=== PATIENT | female | born 1940 | race Caucasian/White ===

== ENCOUNTER 2017-03-14 23:09 | Observation (INO) | payer MEDICARE, MEDICAID ==
[2017-03-14] MEDS ORDERED: FENTANYL 100 MCG/2 ML VIAL ONE (23:36)
[2017-03-15] MEDS ORDERED: KETAMINE HCL 500 MG/10 ML VIAL ONE (00:31)
[2017-03-15] MEDS ORDERED: FENTANYL 100 MCG/2 ML VIAL ONE (00:31)
[2017-03-15] MEDS ORDERED: ONDANSETRON HCL 4 MG/2 ML VIAL ONE (00:31)
[2017-03-15] MEDS ORDERED: LABETALOL HCL 100 MG/20 ML VIAL IV ONE (01:24)
[2017-03-15] MEDS ORDERED: ZOLPIDEM TARTRATE 5 MG TABLET PO PRN (01:32)
[2017-03-15] MEDS ORDERED: HOME MEDICATION LIST NEEDED 1 EA EACH MISC ONE (01:32)
[2017-03-15 01:56] LABS: A/G RATIO 1.1; ALBUMIN 4.2 g/dL (3.5-5.0); ALKALINE PHOSPHATASE 87 U/L (38-126); ALT 52 U/L (9-52); AST 36 U/L (14-36); BILIRUBIN, TOTAL 0.7 mg/dL (0.2-1.3); BLOOD UREA NITROGEN 15 mg/dL (7-17); CALCIUM 9.1 mg/dL (8.4-10.2); CHLORIDE 100 mmol/L (98-107); EST GLOMERULAR FILTRATION RATE > 60 mL/min; POTASSIUM 4.3 mmol/L (3.5-5.1); SODIUM 138 mmol/L (137-145); TOTAL PROTEIN 7.9 g/dL (6.3-8.2)
[2017-03-15] MEDS ORDERED: NORMAL SALINE 1,000 ML IV SCH (02:00)
--- NOTE | 2017-03-15 02:33 | ER NURSING DOCUMENTATION ---
Nurse's Notes [place] Name:Shania Frias Age:76 yrs Sex:Female :1940 Arrival Date:03/14/2017 Time:23:09 BedTrauma-B Private MD: Diagnosis:Ankle Fracture Presentation: 03/14 23:17 Presenting complaint: EMS states: fell out of chair injuring right ankle. Care prior to arrival: Medication(s) given: Fentanyl 100mcg Intranasal. 23:17 Acuity: ANGELICA 2 23:17 Method Of Arrival: EMS: 410 03/15 01:04 Mechanism of Injury: Fall fell from chair, sliding to floor. Trauma event details: Injury occurred in the [facility] Injury occurred at home. Injury occurred March 15, 2017 Injury occurred at 22:10. 01:44 Transition of care: Home. Historical: - Allergies: influenza vaccine; pneumonia vaccine; Levodopa; Unable to obtain; - Home Meds: 1. Keppra Oral 2. Levodopa Oral 3. atorvastatin oral 4. Januvia oral 5. Lantus Sub-Q 6. Aspirin Oral 7. Coumadin Oral 8. Lisinopril Oral 9. Zoloft Oral 10. medicinal marijuana 11. Zoloft 100 mg oral tab once daily 12. Lantus Sub-Q Unknown 13. Keppra 250 mg oral tab Unknown 14. enalapril maleate 5 mg oral tab once daily 15. Coumadin 2 mg oral tab once daily 16. Januvia 100 mg oral tab once daily 17. atorvastatin 80 mg oral tab once daily 18. carbidopa-levodopa 25-100 mg oral tab 19. glipizide 10 mg oral tab once daily - PMHx: Diabetes - IDDM; CVA; PARKINSONS; hypercholesterolemia; myocardial infarction; ANXIETY; DEPRESSION; Hypertension; Seizures; Diabetes - IDDM; CVA; Hypertension; Seizures; DEPRESSION; - PSHx: Hysterectomy; Cholecysectomy; Appendectomy; - Tetanus: Other never received unknown. - Ebola Screening: : Patient negative for fever greater than or equal to 101.5 degrees Fahrenheit, and additional compatible Ebola Virus Disease symptoms. Patient denies exposure to infectious person. Patient denies travel to an Ebola-affected area in the 21 days before illness onset. No symptoms or risks identified at this time. . - Immunization history: Pneumococcal vaccine is not up to date, Patient has never been vaccinated, Flu Vaccine None. - Social history: Smoking status: Patient states was never smoker of tobacco. Patient uses Medical Marijuana Patient/guardian denies using alcohol. Screenin:29 Abuse screen: Denies threats or abuse. Denies injuries from another. Nutritional sj screening: On diabetic diet. Tuberculosis screening: Never had TB. Fall risk At risk due to injury, age, immobility, deformity. 01:44 Infectious Disease Risk None. sj Primary Survey: : Airway: Oxygen via nasal cannula at 2 liters per minute. Breathing/Chest: Respiratory sj pattern: regular, Respiratory effort: spontaneous, unlabored. Circulation: Cardiac rhythm: sinus rhythm Pulses: palpable right dorsalis pedis artery. Skin color: pink. Assessment: :08 General: Appears distressed, Behavior is cooperative, pleasant. Pain: Complains of pain sj in right ankle. Neuro: Level of Consciousness is awake, confused, obeys commands, Oriented to person, place, time, event, Denies paresthesias. Cardiovascular: Capillary refill < 3 seconds in left toes Rhythm is regular. Respiratory: Airway is patent Respiratory effort is even, unlabored, Respiratory pattern is regular, symmetrical. Musculoskeletal: Circulation, motion, and sensation intact Capillary refill < 3 seconds Range of motion limited in right ankle. Vital Signs: 03/14 23:11 BP 185 / 76 (auto/); Pulse 82; Resp 16; Temp 98.2(O); Pulse Ox 92% on 2 lpm NC; Weight sj 68.04 kg; Height 4 ft. 11 in. (149.86 cm); Pain 8/10; 03/15 00:31 BP 209 / 94 (auto/); sj 00:33 Pulse 70 MON; Resp 17; Pulse Ox 94% ; sj 00:43 Pulse 74 MON; Resp 19; Pulse Ox 96% ; sj 00:45 BP 223 / 100 (auto/); sj 00:48 Pulse 80 MON; Resp 19; Pulse Ox 100% ; sj 00:50 BP 230 / 112 (auto/); sj 00:53 Pulse 91 MON; Resp 15; Pulse Ox 100% ; sj 00:55 BP 248 / 123 (auto/); sj 00:58 Pulse 97 MON; Resp 14; Pulse Ox 100% ; sj 01:00 BP 234 / 120 (auto/); sj 01:03 Pulse 87 MON; Resp 14; Pulse Ox 96% ; sj 01:05 BP 224 / 119 (auto/); sj 01:08 Pulse 90 MON; Resp 14; Pulse Ox 96% ; sj 01:11 BP 214 / 108 (auto/); sj 01:13 Pulse 78 MON; Resp 15; Pulse Ox 96% ; sj 01:16 BP 178 / 84 (auto/); sj 01:18 Pulse 67 MON; Resp 17; Pulse Ox 96% ; sj 01:21 BP 159 / 96 (auto/); sj 01:23 Pulse 69 MON; Resp 15; Pulse Ox 97% ; sj 03/14 23:11 Body Mass Index 30.30 (68.04 kg, 149.86 cm) Trauma Score (Adult): 03/14 23:11 Eye Response: spontaneous(1); Verbal Response: confused(1); Motor Response: obeys sj commands(2); Systolic BP: > 89 mm Hg(4); Respiratory Rate: 10 to 29 per min(4); [place] Score: 14; Trauma Score: 12 ED Course: 23:10 Patient arrived in ED. ma1 23:13 Eddie Briggs MD is Attending Physician. tl1 23:16 Port Xray Completed. pm1 23:17 Bertha Gilliam is Primary Nurse. 23:33 Triage completed. 03/15 01:29 Valuables Given to family. Patient has correct armband on for positive identification. Bed in low position. Call light in reach. Side rails up X2. Adult w/ patient. Oxygen Oxygen administration via nasal cannula @ 2L/min. Labs drawn. By Lab Staff Portable x-ray done. official greeter on. Pulse ox on. NIBP on. 01:30 Assist Provider Assist provider with reduction of right ankle. Inserted saline lock: 22 sj gauge in left hand Missed attempts: 20 gauge in left antecubital area, 22 gauge in right wrist. Posterior lower leg splint applied on right leg. Applied post reduction by a physician. 01:44 Valuables Given to family. sj 02:31 Eddie Briggs MD is Admitting Physician. mk4 Administered Medications: 00:40 Drug: Zofran 4 mg; Route: IVP; Infused Over: 2 mins; Site: left hand; 01:42 Follow up: Response: Nausea is decreased 00:45 Drug: Ketamine 0.25 mg/kg; Route: IVP; Site: left hand; sj 01:42 Follow up: Response: Patient is sedated sj 00:48 Drug: fentaNYL (PF) 50 mcg; Route: IVP; Site: left hand; sj 01:42 Follow up: Response: Pain is decreased sj 01:12 Drug: Labetalol 20 mg; Route: IVP; Infused Over: 2 mins; Site: left hand; sj 01:42 Follow up: Response: Blood pressure is lowered sj 01:42 Not Given (Physician Discretion): Dilaudid 1 mg IVP once sj Outcome: 01:39 Admitted to Med/surg accompanied by nurse, family with patient, via stretcher, with oxygen. 01:39 Condition: improved 01:53 Report given to Gil GARRIDO mk4 02:32 Decision to Admit by Provider. mk4 02:32 Patient left the ED. mk4 Signatures: Chelsey Beckman Philisha pm1 Rosalia Shah 4 Eddie Briggs MD MD 1 Bertha Gilliam Melissa il1
[2017-03-15 02:38] LABS: GLUCOSE 320 mg/dL (70-100)
[2017-03-15 03:24] LABS: RED BLOOD COUNT 4.62 X 10^6uL (4.20-6.10); WHITE BLOOD COUNT 18.5 X 10^3uL (3.9-10.7)
[2017-03-15 03:25] LABS: HEMATOCRIT 43.1 % (36.0-48.0); HEMOGLOBIN 14.5 g/dL (12.0-16.0); LYMPHOCYTES 55.4 % (20.0-40.0); MEAN CORPUS. HGB CONCENTRATION 33.8 g/dL (32.0-36.0); MEAN CORPUSCULAR HEMOGLOBIN 31.5 pg (29.0-35.0); MEAN PLATELET VOLUME 7.7 fL (7.4-10.4); NEUTROPHILS 36.3 % (54.0-75.0); RED CELL DISTRIBUTION WIDTH 12.8 % (11.5-14.5)
[2017-03-15 03:26] LABS: BASOPHILS 1.3 % (0.0-2.0); NEUTROPHILS# 6.7 X 10^3uL (2.6-6.7)
[2017-03-15 03:27] LABS: BASOPHIL# 0.2 X 10^3uL (0.0-0.1); EOSINOPHILS# 0.2 X 10^3uL (0.0-0.4); MONOCYTES# 1.1 X 10^3uL (0.2-1.0)
[2017-03-15 03:29] LABS: PLATELET COUNT 209 X 10^3uL (130-440)
[2017-03-15] MEDS ORDERED: MORPHINE SULFATE 4 MG/ML SYR IV PRN (04:03)
[2017-03-15] MEDS ORDERED: ATORVASTATIN CALCIUIM 40 MG TABLET PO SCH ×2 (04:22→21:00)
[2017-03-15] MEDS ORDERED: ENALAPRIL MALEATE 5 MG TABLET PO SCH ×2 (04:30→09:00)
[2017-03-15] MEDS ORDERED: LEVETIRACETAM 500 MG TABLET PO ONE (04:35)
[2017-03-15] MEDS ORDERED: ENALAPRIL MALEATE 5 MG TABLET PO ONE (04:45)
[2017-03-15] MEDS: ACETAMINOPHEN 325 MG TABLET PO PRN ×2 (06:41→11:26)
[2017-03-15] MEDS ORDERED: CARBIDOPA/LEVODOPA 25/100 MG 1 TAB TABLET PO SCH (09:00)
[2017-03-15] MEDS ORDERED: SITAGLIPTIN 100 MG TABLET PO SCH (09:00)
[2017-03-15] MEDS ORDERED: LEVETIRACETAM 500 MG TABLET PO SCH (09:00)
--- NOTE | 2017-03-15 10:56 | HISTORY AND PHYSICAL ---
PROVIDER: Date of Admission: 03/15/17 Admitting Provider: LACEY NICHOLS Attending Provider: LACEY NICHOLS Primary Care Provider: Dr. Mary Gaspar at [facility] Cardiology: [facility] HISTORY OF PRESENT ILLNESS: Mrs. Frias is a 76-year-old lady with past medical history significant for hypertension atrial fibrillation diabetes who had a stroke myocardial infarction and developed a seizure disorder and parkinsonism as a consequence of the stroke in 2004. She also had premorbid anxiety and depression that has increased since her stroke. She has additionally undergone a cholecystectomy appendectomy total abdominal hysterectomy. She was admitted last evening after sustaining a fall and bimalleolar fracture right ankle by Dr. Briggs at that time he attempted to transfer patient to [facility] where her rn cardiovascular icu as well her primary care physician have privileges as Dr. Guan was consulted from an orthopedic standpoint and felt that the fracture could be addressed in most institutions but because of her medical comorbidity she would best be served perioperatively and postoperatively being managed by physicians that new her and could address cardiac and respiratory complication. Unfortunately, she was not able to transfer secondary to chronic and ongoing difficulty with ambulation, EMS unable to provide transport to [facility] , [facility] not being able to send an ambulance unless critical care related and patients family unable to transfer her into their RV related to parkinsonism from her prior stroke as well concomitant pain with bimalleolar fracture. At baseline she lives with her son uses a 4 wheeled walker with hand brakes but needs help even to ambulate with this as she has gait instability she needs help with toileting and dressing and is only able to feed herself. Since her injury last evening she has not been able to transfer from bed to wheelchair and wheelchair back to bed easily and is a 3 person assist. They describe what happened last evening she was sitting in her recliner as she normally does watching TV and stood without assistance and slipped without a head injury but wedging her ankle between furniture and fracturing. She does not recall fever cough cold congestion dysuria or urinary frequency nausea abdominal pain diarrhea chest pain palpitations or shortness of breath prior to this episode. In the emergency room she was noted to be hypertensive that exacerbated after ketamine was used for reduction of her fracture and splinting. PAST MEDICAL HISTORY: Parkinsonism stroke 2004 myocardial infarction 2004 seizure disorder 2004 diabetes atrial fibrillation hypertension anxiety and depression PAST SURGICAL HISTORY: Colectomy appendectomy cholecystectomy SOCIAL HISTORY: Lives with her son needs assistance with activities of daily living with exception of feeding ( including assistance with toileting bathing and dressing) lifelong non-smoker no alcohol uses medicinal marijuana MEDICATIONS: Zoloft 100 mg p.o. daily Lantus subcutaneous dosing query dose daily Keppra 250 mg p.o. twice daily enalapril 5 mg p.o. daily Coumadin 2 mg p.o. daily Januvia 100 mg p.o. daily atorvastatin 80 mg p.o. daily medicinal marijuana query dose daily Sinemet 25/100 mg tablets 1 tablet p.o. 3 times daily glipizide 10 mg 1 tablet p.o. daily ALLERGIES: NKDA REVIEW OF SYSTEMS: per HPI VITAL SIGNS: 130/70 HR 70 RR16 T: 98.8 Pulse ox:95% 2lNC PHYSICAL EXAMINATION: Pleasant no apparent distress no jaundice anemia cyanosis clubbing or lymphadenopathy neck is supple no masses or bruits cardiac exam S1-S2 without murmur respiratory exam clear to auscultation to bases no adventitial sounds abdominal exam soft nontender no masses appreciated extremity exam cogwheel rigidity prominent right upper extremity no pronator drift mild dysmetria right upper extremity power and tone symmetric in upper extremities otherwise noted lower extremity brisk cap refill right lower extremity and able to wiggle toes without pain but ankle is splinted left leg normal power and tone dorsal pedal pulses palpable Assessment and Plan - Date of Encounter Date of Encounter: 03/15/17 (1) Bimalleolar fracture of right ankle Status: Acute Qualifiers: Encounter type: initial encounter Fracture type: closed Qualified Code(s) : S82.841A - Displaced bimalleolar fracture of right lower leg, initial encounter for closed fracture Assessment and plan: Splinted, elevated and ice applied. Pain control adequate. May need to readdress with Dr. Guan operative management at [facility], EKG and chest x-ray being requested as transportation may become an issue. Family is aware that patient's medical comorbidity does make her higher risk and lack of prior records and studies also affects risk stratification. Depending on EKG and chest x-ray results and if indeed elevated white count is related to urinary tract infection and adequately treated, patient should be able to undergo anesthesia for operative fixation of her bimalleolar fracture. Ideally this would occur at [facility] and I have completed travel insurance forms for patient's insurance to hopefully cover portion of her transfer cost and discussing with EMS at [facility] feasibility of freeing up an ambulance for transport and/or son if able to obtain a car that the patient can transfer into and out of with assistance, will then liaise with [facility] hospitalist group to arrange transfer and admission, preop optimization prior to surgery over the next several days. otal time 120 minutes with most in logisics of care/counselling/coordination of care Current Visit: Yes (2) Diabetes Status: Acute Qualifiers: Diabetes mellitus type: type 2 Assessment and plan: continue current meds, SSI and calculate need and add back in Lantus Current Visit: Yes (3) Hypertension Status: Acute Qualifiers: Hypertension type: essential hypertension Qualified Code(s): I10 - Essential (primary) hypertension Assessment and plan: ACEI Current Visit: Yes (4) Dyslipidemia Status: Acute Assessment and plan: ?Need statin, not appear to be taking post stroke Current Visit: Yes (5) Parkinsonism Status: Acute Qualifiers: 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 Qualified Code(s): 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 Current Visit: Yes (6) Leukocytosis Status: Acute Assessment and plan: likely UTI, culture pending and Abx started Current Visit: Yes (7) H/O: stroke with residual effects Status: Acute Current Visit: Yes (8) H/O myocardial ischemia Status: Acute Current Visit: Yes (9) Atrial fibrillation Status: Acute Qualifiers: Atrial fibrillation type: paroxysmal Qualified Code(s): I48.0 - Paroxysmal atrial fibrillation Assessment and plan: on warfarin for anticoagulation Current Visit: Yes (10) Anxiety Status: Acute Assessment and plan: lexapro Current Visit: Yes (11) Depression Status: Acute Current Visit: Yes - Time Spent With Patient Total time spent with greater than 50% in coordination of care (as documented) at patient's floor/unit and/or counseling patient: Greater than 35 minutes
[2017-03-15] MEDS ORDERED: CIPROFLOXACIN HCL 250 MG TABLET PO SCH (11:00)
[2017-03-15] MEDS ORDERED: DEXTROSE 50% WATER 25 GM/50 ML SYR IV PRN (11:17)
[2017-03-15] MEDS ORDERED: INSULIN LISPRO 100 UNIT/ML ML SUBCUT SCH (11:30)
--- NOTE | 2017-03-15 11:42 | RADIOLOGY REPORT ---
HISTORY: Preoperative. COMPARISON: None. FINDINGS: 1 view of the chest obtained. The heart size is within normal limits. There is diffuse airways thicke ml. No acute infiltrate is demonstrated. There is no pneumothorax or pleural effusion. The chest wa ll appears intact. IMPRESSION: Mild chronic airways disease. No active pulmonary disease otherwise. Final Electronic Signature: This report was electronically signed by Ramu Tompkins MD on 03/15/2017 11:39 AM. viji /
[2017-03-15 11:43] LABS: BLOOD UREA NITROGEN 13 mg/dL (7-17); CALCIUM 8.6 mg/dL (8.4-10.2); CHLORIDE 101 mmol/L (98-107); EST GLOMERULAR FILTRATION RATE > 60 mL/min; POTASSIUM 4.5 mmol/L (3.5-5.1); SODIUM 135 mmol/L (137-145)
[2017-03-15 11:44] LABS: GLUCOSE 278 mg/dL (70-100)
[2017-03-15 12:07] LABS: HEMATOCRIT 38.7 % (36.0-48.0); HEMOGLOBIN 12.8 g/dL (12.0-16.0); MEAN CORPUSCULAR HEMOGLOBIN 31.1 pg (29.0-35.0); PLATELET COUNT 189 X 10^3uL (130-440); RED CELL DISTRIBUTION WIDTH 13.2 % (11.5-14.5)
[2017-03-15 12:08] LABS: BASOPHIL# 0.2 X 10^3uL (0.0-0.1); EOSINOPHILS 0.9 % (0.0-6.0); EOSINOPHILS# 0.2 X 10^3uL (0.0-0.4); LYMPHOCYTES# 9.8 X 10^3uL (0.8-3.8); MEAN PLATELET VOLUME 7.9 fL (7.4-10.4); MONOCYTES 6.2 % (2.0-10.0); MONOCYTES# 1.1 X 10^3uL (0.2-1.0); NEUTROPHILS 38.3 % (54.0-75.0); WHITE BLOOD COUNT 18.4 X 10^3uL (3.9-10.7)
[2017-03-15 12:09] LABS: LYMPHOCYTES 53.6 % (20.0-40.0)
[2017-03-15 12:30] VITALS: BP 142/65; RESP 20; TEMP 97.8; O2SAT 90
--- NOTE | 2017-03-15 13:00 | DC SUMMARY: IM Note ---
Discharge Summary: IM/Peds Provider: Date of Admission: 03/15/17 Admitting Provider: LACEY NICHOLS Attending Provider: LACEY NICHOLS Discharging Provider: LACEY NICHOLS Primary Care Provider: Discharge Date: 03/15/17 - Diagnosis (1) Bimalleolar fracture of right ankle Status: Acute Qualifiers: Encounter type: initial encounter Fracture type: closed Qualified Code(s) : S82.841A - Displaced bimalleolar fracture of right lower leg, initial encounter for closed fracture (2) Diabetes Status: Acute Qualifiers: Diabetes mellitus type: type 2 (3) Hypertension Status: Acute Qualifiers: Hypertension type: essential hypertension Qualified Code(s): I10 - Essential (primary) hypertension (4) Dyslipidemia Status: Acute (5) Parkinsonism Status: Acute Qualifiers: 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 Qualified Code(s): 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 Diet: diabetic Overall discharge status: stable Disposition: HOME, SELF-CARE Discharge Summary Data - Medication History Medication History: Home Medications Atorvastatin Calcium [Lipitor*] 80 mg PO DAILY 03/15/17 Carbidopa/Levodopa 25/100 mg [Sinemet 25/100*] 1.5 tab PO TID 03/15/17 Enalapril Maleate [Vasotec*] 5 mg PO DAILY 03/15/17 Glipizide [Glipizide ER] 10 mg PO DAILY 03/15/17 Insulin Glargine,Hum.rec.anlog [Lantus Solostar] 5 units SUBCUT DAILY 03/15/17 Levetiracetam [Levetiracetam] 250 mg PO BID 03/15/17 Sertraline HCl [Zoloft*] 100 mg PO DAILY 03/15/17 Sitagliptin [Januvia*] 100 mg PO DAILY 03/15/17 Warfarin Sodium [Warfarin Sodium] 2 mg PO DAILY 03/15/17 Inpatient Medications 03/15/17 04:03 Morphine Sulfate 4 mg IV Q1H PRN 03/15/17 06:35 Acetaminophen [Tylenol] 650 mg PO Q6H PRN 03/15/17 09:00 Carbidopa/Levodopa 25/100 mg [Sinemet 25/100] 1.5 tab PO TID Enalapril Maleate [Vasotec] 5 mg PO BID Sitagliptin [Januvia] 100 mg PO DAILY 03/15/17 11:00 Ciprofloxacin HCl [Cipro] 250 mg PO Q12H 03/15/17 11:17 Dextrose 50% Water [D50%] 50 gm IV PRN PRN 03/15/17 11:30 Insulin Lispro [HumaLOG] See Protocol SUBCUT ACHS 03/15/17 16:00 Warfarin Sodium [Coumadin] 2 mg PO ONCE DAILY @1600 03/15/17 21:00 Atorvastatin Calcium [Lipitor] 80 mg PO HS Insulin Glargine,Hum.rec.anlog [Lantus] 5 units SUBCUT HS Sertraline HCl [Zoloft] 100 mg PO BEDTIME (DAILY) Procedures and tests throughout hospitalization: Completed Lab Orders 03/15/17 11:20 BMP [BASIC METABOLIC PANEL] [CHEM] Urgent CBC AUTO DIF, MDIF/RMOR IF IND [HEM] Urgent Completed Imaging Orders 03/15/17 11:08 CHEST; SINGLE VIEW [id number] [RAD] Stat Pending Orders 03/15/17 04:03 Morphine Sulfate 4 mg IV Q1H PRN 03/15/17 06:35 Acetaminophen [Tylenol] 650 mg PO Q6H PRN 03/15/17 09:00 Carbidopa/Levodopa 25/100 mg [Sinemet 25/100] 1.5 tab PO TID Enalapril Maleate [Vasotec] 5 mg PO BID Sitagliptin [Januvia] 100 mg PO DAILY 03/15/17 10:44 UA W/ MICRO -CULTURE IF IND [URINE] Urgent 03/15/17 11:00 Ciprofloxacin HCl [Cipro] 250 mg PO Q12H 03/15/17 11:08 EKG ONCE 03/15/17 11:10 Hemoglobin A1c [GLYCOSYLATED HGB] [CHEM] Routine 03/15/17 11:17 Finger Stick Blood Sugar ACHS FINGER STICK Hypoglycemia treatment... PER PROTOCOL Notify Physician . Dextrose 50% Water [D50%] 50 gm IV PRN PRN 03/15/17 11:30 Insulin Lispro [HumaLOG] See Protocol SUBCUT ACHS 03/15/17 16:00 Warfarin Sodium [Coumadin] 2 mg PO ONCE DAILY @1600 03/15/17 21:00 Atorvastatin Calcium [Lipitor] 80 mg PO HS Insulin Glargine,Hum.rec.anlog [Lantus] 5 units SUBCUT HS Sertraline HCl [Zoloft] 100 mg PO BEDTIME (DAILY) Labs on day of discharge: Labs from last 24 hours 03/15/17 03/15/17 11:20 11:10 WBC 18.4 H RBC 4.10 L Hgb 12.8 Hct 38.7 MCV 94.0 MCH 31.1 MCHC 33.0 RDW 13.2 Plt Count 189 MPV 7.9 Neutrophils % 38.3 L Lymphocytes % 53.6 H Eosinophils % 0.9 Basophils % 1.0 Neutrophils # 7.0 H Lymphocytes # 9.8 H Monocytes 6.2 Monocytes # 1.1 H Eosinophils # 0.2 Basophils # 0.2 H Sodium 135 L Potassium 4.5 Chloride 101 Carbon Dioxide 24 BUN 13 Creatinine 0.5 GFR Calculation > 60 Glucose 278 H Hemoglobin A1c Pending Calcium 8.6 - Impressions Patient, Shania Frias was admitted for management of bimalleolar fracture she has a past medical history significant for atrial fibrillation diabetes dyslipidemia history of myocardial infarction as well as stroke with vascular parkinsonism on her right. She also has a history of CLL ,seizure disorder , hypertension and anxiety with depression. She was in her usual state of health when she sustained an injury to her right ankle and a bimalleolar fracture and was subsequently seen at the [facility]'s emergency department because of difficulty with disposition and transfer she was admitted for medical optimization and arrangement for transfer this morning. After reviewed and discussed her care with both patient and her son who is her medical power of real estate attorney. Her primary care physician and primary cardiology groups admits to [facility]. Patient will be admitted to [facility] care was discussed with Luna from the intake center and Dr. Lira internal medicine hospitalist has graciously agreed to accept patient in transfer and arrange preoperative evaluation optimization and orthopedic consultation for repair. IM: Discharge Physical Exam - I&O/Vital Signs I&O: Intake & Output 03/14/17 03/15/17 03/15/17 21:59 05:59 13:59 Intake Total 436 Balance 436 Weight 70.987 kg Intake: IV 211 Left Wrist 211 Oral 225 Other: Voiding Method Incontinent Incontinent Vital Signs: Last Vital Signs Temp 36.6 C 03/15/17 11:00 Pulse 20 L 03/15/17 11:00 Resp 20 03/15/17 11:00 BP 142/65 03/15/17 11:00 Pulse Ox 90 03/15/17 11:00 Oxygen Flow Rate 2.5 Oxygen Delivery Method Room Air
[2017-03-15 13:16] LABS: URINE APPEARANCE CLEAR; URINE COLOR YELLOW; URINE MUCUS NONE SEEN (Up to 25%); URINE RBC NONE SEEN (0-5/hpf); URINE WBC NONE SEEN (0-4/hpf)
[2017-03-15 13:17] LABS: URINE BACTERIA NONE SEEN (<10/hpf); URINE BILIRUBIN NEGATIVE (NEGATIVE); URINE BLOOD NEGATIVE (NEGATIVE); URINE GLUCOSE 250mg/dL (1+) (NEGATIVE); URINE KETONE NEGATIVE (NEGATIVE); URINE LEUKOCYTE ESTERASE NEGATIVE (NEGATIVE); URINE NITRITE NEGATIVE (NEGATIVE); URINE PH 6.5 (5-7); URINE PROTEIN NEGATIVE (NEG - TRACE); URINE SPECIFIC GRAVITY 1.015 (0.001-1.035); URINE SQUAMOUS EPITHELIAL CELL 0-5/hpf (<= 15/hpf); URINE UROBILINOGEN 0.2mg/dL (Normal) (NEG-1mg/dL)
[2017-03-15 13:29] VITALS: PULSE 76
[2017-03-15] MEDS ORDERED: ACETAMINOPHEN 325 MG TABLET PO ONE (15:40)
[2017-03-15] MEDS ORDERED: WARFARIN SODIUM 2 MG TABLET PO SCH (16:00)
[2017-03-15] MEDS ORDERED: SERTRALINE HCL 50 MG TABLET PO SCH (21:00)
[2017-03-15] MEDS ORDERED: INSULIN GLARGINE,HUM.REC.ANLOG 100 UNITS/ML ML SUBCUT SCH (21:00)
--- NOTE | 2017-03-17 02:33 | ER PHYSICIAN DOCUMENTATION ---
Physician Documentation [facility] Name:Shania Frias Age:76 yrs Sex:Female :1940 Arrival Date:03/14/2017 Time:23:09 BedTrauma-B Private MD: ED Eddie Domingo Disposition: 03/15 06:42 Chart complete. tl1 Disposition: 03/15/17 02:32 Admit ordered for Eddie Briggs. Preliminary diagnosis is Ankle Fracture. - Bed requested for Medical/Surgical. - Condition is Good. 23 HR OBS Yes HPI: 03/14 23:15 This 76 yrs old Female presents to ER via EMS with complaints of Fall Injury. tl1 23:15 Details of fall: The patient fell from seated position. Onset: The symptom(s)/episode tl1 began/occurred suddenly, just prior to arrival. She has MMP including Parkinson's, previous CVA, seizure d/o, DM-II, HTN and obesity. her mobility is very poor. She is visiting from [place], where she lives with her son and caregiver. They are up here in a motor home, and she injured her right ankle this evening, just [employer], when she stood up and somehow injured her right ankle, which was swollen, deformed and painful. She could not describe the mechanism. Other than right ankle pain, she has no complaints. She was BIB EMS. Historical: - Allergies: influenza vaccine; pneumonia vaccine; Levodopa; Unable to obtain; - Home Meds: 1. Keppra Oral 2. Levodopa Oral 3. atorvastatin oral 4. Januvia oral 5. Lantus Sub-Q 6. Aspirin Oral 7. Coumadin Oral 8. Lisinopril Oral 9. Zoloft Oral 10. medicinal marijuana 11. Zoloft 100 mg oral tab once daily 12. Lantus Sub-Q Unknown 13. Keppra 250 mg oral tab Unknown 14. enalapril maleate 5 mg oral tab once daily 15. Coumadin 2 mg oral tab once daily 16. Januvia 100 mg oral tab once daily 17. atorvastatin 80 mg oral tab once daily 18. carbidopa-levodopa 25-100 mg oral tab 19. glipizide 10 mg oral tab once daily - PMHx: Diabetes - IDDM; CVA; PARKINSONS; hypercholesterolemia; myocardial infarction; ANXIETY; DEPRESSION; Hypertension; Seizures; Diabetes - IDDM; CVA; Hypertension; Seizures; DEPRESSION; - PSHx: Hysterectomy; Cholecysectomy; Appendectomy; - Tetanus: Other never received unknown. - Ebola Screening: : Patient negative for fever greater than or equal to 101.5 degrees Fahrenheit, and additional compatible Ebola Virus Disease symptoms. Patient denies exposure to infectious person. Patient denies travel to an Ebola-affected area in the 21 days before illness onset. No symptoms or risks identified at this time. . - Immunization history: Pneumococcal vaccine is not up to date, Patient has never been vaccinated, Flu Vaccine None. - Social history: Smoking status: Patient states was never smoker of tobacco. Patient uses Medical Marijuana Patient/guardian denies using alcohol. ROS: 03/15 00:20 MS/extremity: Positive for injury or acute deformity, pain, swelling, tenderness, of tl1 the right ankle and anterior aspect of right ankle, Negative for abrasion, laceration, warmth. All other systems are negative. Exam: 00:20 Constitutional: The patient appears alert, awake, well developed, well nourished, in tl1 obvious pain, uncomfortable. 00:20 Head/face: Exam is negative for acute changes. 00:20 ENT: Exam is negative for acute changes. 00:20 Neck: External neck: is normal, ROM/movement: is normal, no acute changes, Lymph nodes: no appreciated lymphadenopathy. 00:20 Chest/axilla: Palpation: is normal, no crepitus, no tenderness. 00:20 Cardiovascular: Rate: normal, Rhythm: regular, Heart sounds: normal. 00:20 Respiratory: Respirations: normal, Breath sounds: are normal. 00:20 Abdomen/GI: Palpation: abdomen is soft and non-tender. 00:20 Back: pain, is absent, CVA tenderness, that is mild. 00:20 Musculoskeletal/extremity: Joints: All joints are normal except the right ankle displays deformity, dislocation, pain at rest, painful range of motion, swelling, tenderness, Weight bearing: is unable to bear weight. 00:20 Skin: Appearance: Color: erythematous, denis, Temperature: cool, Moisture: dry, petechiae, not noted, ecchymosis, noted on the, , that are mild. 00:20 Neuro: Mentation: slow to respond, Memory: immediate memory is impaired, recent memory is impaired. Vital Signs: 03/14 23:11 BP 185 / 76 (auto/); Pulse 82; Resp 16; Temp 98.2(O); Pulse Ox 92% on 2 lpm NC; Weight 68.04 kg; Height 4 ft. 11 in. (149.86 cm); Pain 04/02; 03/15 00:31 BP 209 / 94 (auto/); sj 00:33 Pulse 70 MON; Resp 17; Pulse Ox 94% ; 00:43 Pulse 74 MON; Resp 19; Pulse Ox 96% ; 00:45 BP 223 / 100 (auto/); 00:48 Pulse 80 MON; Resp 19; Pulse Ox 100% ; 00:50 BP 230 / 112 (auto/); 00:53 Pulse 91 MON; Resp 15; Pulse Ox 100% ; 00:55 BP 248 / 123 (auto/); 00:58 Pulse 97 MON; Resp 14; Pulse Ox 100% ; 01:00 BP 234 / 120 (auto/); 01:03 Pulse 87 MON; Resp 14; Pulse Ox 96% ; 01:05 BP 224 / 119 (auto/); 01:08 Pulse 90 MON; Resp 14; Pulse Ox 96% ; 01:11 BP 214 / 108 (auto/); 01:13 Pulse 78 MON; Resp 15; Pulse Ox 96% ; 01:16 BP 178 / 84 (auto/); 01:18 Pulse 67 MON; Resp 17; Pulse Ox 96% ; 01:21 BP 159 / 96 (auto/); 01:23 Pulse 69 MON; Resp 15; Pulse Ox 97% ; sj 03/14 23:11 Body Mass Index 30.30 (68.04 kg, 149.86 cm) Trauma Score (Adult): 03/14 23:11 Eye Response: spontaneous(1); Verbal Response: confused(1); Motor Response: obeys commands(2); Systolic BP: > 89 mm Hg(4); Respiratory Rate: 10 to 29 per min(4); Marquise Score: 14; Trauma Score: 12 Procedures: 03/15 00:20 Reduction: of the right ankle, using traction, manipulation, Immobilized with tl1 FIBERGLASS; SUGAR TONG AND POSTERIOR SPLINT. Patient tolerated well. Post reduction film - reveals improved alignment. Splinting: Splint applied to right leg using Orthoglass splint, applied by myself. nurse. post reduction film - reveals normal alignment, Examined by me, post splint application: neurovascular intact, Patient tolerated well, AFTER PAIN DOSE (0.25 mg/kg) of ketamine and 50 mg fentanyl IV.. MDM: 03/14 23:12 Patient medically screened. 1 03/15 00:20 Differential diagnosis: contusion, fracture, dislocation. Data reviewed: vital signs, tl1 nurses notes, lab test result(s), CBC, electrolytes, hepatic panel, INR, and as a result, I will admit patient. Test interpretation: by ED physician or midlevel provider: plain radiologic studies. Counseling: I had a detailed discussion with the patient and/or guardian regarding: the historical points, exam findings, and any diagnostic results supporting the discharge/admit diagnosis, lab results, radiology results, the need for further work-up and treatment in the hospital. Response to treatment: the patient's symptoms have markedly improved after treatment. ED course: Reduction was successful. We were unable to get her home to [facility], where she would like to have her surgery; she and her son would prefer not to have it here, but rather to be close to home. I discussed her care with Dr Gibson Hutton, who kindly agreed to admit her pending a ride home. Her son did not think it would be possible to get her in or out of the motor home.. 03/15 02:22 Order name: PROTIME/INR; Complete Time: 06: EDMA 03/15 06:23 Interpretation: Abnormal: PROTIME 41.6; INR 3.0; THERAPEUTIC. 1 03/15 02:39 Order name: COMPREHENSIVE METABOLIC PANEL; Complete Time: 06:23 EDMS 03/15 06:23 Interpretation: Normal Except: GLUCOSE 320. 1 03/15 03:29 Order name: CBC AUTO DIF, MDIF/RMOR IF IND; Complete Time: : EDMS 03/15 06:23 Interpretation: WHITE BLOOD COUNT 18.5; NEUTROPHILS 36.3; LYMPHOCYTES 55.4. 1 03/15 11:46 Order name: BASIC METABOLIC PANEL [facility] 03/15 12:10 Order name: CBC AUTO DIF, MDIF/RMOR IF IND EDMA 03/15 13:18 Order name: UA W/ MICRO -CULTURE IF IND EDMS 03/16 10:18 Order name: CBC-AUTO DIF, MDIF/RMOR IF IND EDMS 03/15 11:43 Order name: CHEST; SINGLE VIEW 23884 EDMS Dispensed Medications: 00:40 Drug: Zofran 4 mg; Route: IVP; Infused Over: 2 mins; Site: left hand; sj 01:42 Follow up: Response: Nausea is decreased sj 00:45 Drug: Ketamine 0.25 mg/kg; Route: IVP; Site: left hand; sj 01:42 Follow up: Response: Patient is sedated sj 00:48 Drug: fentaNYL (PF) 50 mcg; Route: IVP; Site: left hand; sj 01:42 Follow up: Response: Pain is decreased sj 01:12 Drug: Labetalol 20 mg; Route: IVP; Infused Over: 2 mins; Site: left hand; sj 01:42 Follow up: Response: Blood pressure is lowered sj 01:42 Not Given (Physician Discretion): Dilaudid 1 mg IVP once sj Signatures: Rosalia Shah 4 Eddie Briggs MD MD tl1 Bertha Gilliam
--- NOTE | 2017-03-17 07:35 | RADIOLOGY REPORT ---
Views of the right lower leg and right ankle demonstrate an oblique fracture of the distal fibula and transverse fracture of the medial malleolus, consistent with an eversion type injury. There is 1 cm of lateral displacement of the distal components. Posterior tibia appears intact. The talar dome is intact. No other abnormality is identified. IMPRESSION: Displaced eversion type bimalleolar fracture complex as described. MTDD
--- NOTE | 2017-03-17 07:36 | RADIOLOGY REPORT ---
Three views of the right ankle at 0102 hours demonstrates interval reduction and splinting. No new abnormality is identified. IMPRESSION: Eversion type bimalleolar fractures with subsequent reduction and splinting. IVANAD
[2017-03-18 18:29] LABS: LYMPHOCYTES# 10.2 X 10^3uL (0.8-3.8)
== END 2017-03-15 13:00 | disposition home or self-care (01) ==
LOC: ER 23:09 → IN 03-15 02:36
PROVIDERS: ADMIT Hospitalist; ATTEND Hospitalist
DX: S82.841A Displaced bimalleolar fracture of right lower leg, initial encounter for closed fracture (principal); W01.0XXA Fall on same level from slipping, tripping and stumbling without subsequent striking against object, initial encounter; I48.2 Chronic atrial fibrillation; G40.909 Epilepsy, unspecified, not intractable, without status epilepticus; G20 Parkinson's disease; F32.89 Other specified depressive episodes; Z86.73 Personal history of transient ischemic attack (TIA), and cerebral infarction without residual deficits; I25.2 Old myocardial infarction; E11.9 Type 2 diabetes mellitus without complications; I10 Essential (primary) hypertension; Z79.899 Other long term (current) drug therapy; Z79.01 Long term (current) use of anticoagulants; M25.50 Pain in unspecified joint; Z74.3 Need for continuous supervision
CPT/HCPCS: 27788; 29515; 36415; 71010; 73590; 73600; 73610; 80048; 80053; 81001; 83036; 85025; 85610; 96374; 96375; 99220; 99282; 99285; 99354; A0425; A0427; G0378; J1170; J1815; J2405; J3010; J7030